=== PATIENT | female | born 1965 | race Caucasian/White ===

== ENCOUNTER 2020-12-24 23:13 | Emergency (ER) | payer OTHER ==
[~2020-12-24] VITALS: Ht 182.9 cm; Wt 113.4 kg
--- NOTE | 2020-12-24 23:13 | NUR ---
EKG performed at by Kaylie. Physician given copy of EKG for review.
[2020-12-24 23:15] VITALS: BP_SYST 155
--- NOTE | 2020-12-24 23:15 | NUR ---
Patient to ER bed 1 to gown for evaluation. Side rails up.
--- NOTE | 2020-12-24 23:16 | NUR ---
EKG at bedside.
--- NOTE | 2020-12-24 23:18 | NUR ---
Patient BIB by family from home. C/O chest pain and palpitation x today. Patient reported, had chest pain and palpitation ~ 1 hour ETA. A/O,X4, mid chest pain, pain rate 2/10, place patient on quality assurance monitor final and pulse ox.
[2020-12-25] MEDS ORDERED: ASPIRIN 81 MG TAB.CHEW PO ONE (01:15)
[2020-12-25] MEDS ORDERED: NITROGLYCERIN 0.4 MG TAB.SUBL SL ONE (01:15)
[2020-12-25 01:28] LABS: BASOPHILS # (AUTO) 0.1 K/uL (0.0-0.2); BASOPHILS % (AUTO) 1.2 % (0.0-2.0); EOSINOPHILS # (AUTO) 0.1 K/uL (0.0-0.4); EOSINOPHILS % (AUTO) 2.2 % (0.0-4.0); HEMATOCRIT 41.3 % (36-48); LYMPHOCYTES # (AUTO) 1.5 K/uL (1.0-5.5); LYMPHOCYTES % (AUTO) 22.8 % (20.5-51.5); MEAN CORPUSCULAR HEMOGLOBIN 31 pg (27-31); MEAN CORPUSCULAR HGB CONC 34 % (32-36); MEAN CORPUSCULAR VOLUME 92 fL (79.0-98.0); MONOCYTES # (AUTO) 0.5 K/uL (0.0-1.0); MONOCYTES % (AUTO) 8.1 % (1.7-9.3); NEUTROPHILS # (AUTO) 4.3 K/uL (1.8-7.7); NEUTROPHILS % (AUTO) 65.7 % (40.0-70.0); PLATELET COUNT (AUTO) 241 K/uL (130-430); RED BLOOD CELL COUNT(AUTO) 4.47 MIL/uL (4.2-6.2); RED CELL DISTRIBUTION WIDTH 12.7 % (9.0-15.0); WHITE BLOOD COUNT (AUTO) 6.5 K/uL (4.8-10.8)
--- NOTE | 2020-12-25 01:28 | NUR ---
Medicated w/ ASA 162mg po and ntg 0.4mg sl per MD orders. Will cont to monitor and observe for any adverse reaction. Bed to low position sr up, continue to monitor.
[2020-12-25 01:40] LABS: CALCIUM 8.4 mg/dL (8.4-11.0); CREATININE 0.82 mg/dL (0.55-1.30); POTASSIUM 4.4 mmol/L (3.5-5.1)
[2020-12-25 01:45] LABS: PROTHROMBIN TIME 10.2 SECS (9.5-12.5)
[2020-12-25 01:46] LABS: ALBUMIN 3.3 g/dL (3.4-4.8); TOTAL BILIRUBIN 0.4 mg/dL (0.0-1.0)
[2020-12-25 03:30] VITALS: BP_SYST 148
--- NOTE | 2020-12-25 03:30 | NUR ---
Patient given written and verbal discharge instructions and verbalizes understanding. ER MD discussed with patient the results and treatment provided. Patient in stable condition. ID arm band removed. No Rx given. Patient educated on pain management and to follow up with PMD. Pain Scale 0/10. Opportunity for questions provided and answered.
== END 2020-12-25 03:30 | disposition home or self-care (01) ==
LOC: SED 23:13
DX: R00.2 Palpitations (principal)
CPT/HCPCS: 36415; 71045; 80053; 82550; 83880; 84484; 85025; 85379; 85610-TC; 93005; 99285